=== PATIENT | male | born 1960 ===

== ENCOUNTER 2022-08-23 06:57 | Day surgery (SDC) | payer OTHER ==
[~2022-08-23] VITALS: Ht 182.9 cm; Wt 90.7 kg
== END 2022-08-23 14:25 | disposition home or self-care (01) ==
LOC: CIR.AMB 06:57
PROVIDERS: ATTEND Orthopaedic Surgery
DX: M75.121 Complete rotator cuff tear or rupture of right shoulder, not specified as traumatic (principal); S46.211A Strain of muscle, fascia and tendon of other parts of biceps, right arm, initial encounter; M24.111 Other articular cartilage disorders, right shoulder; Z20.822 Contact with and (suspected) exposure to COVID-19